=== PATIENT | male | born 1990 | race American Indian/Alaskan Native ===

== ENCOUNTER 2017-06-12 12:01 | Emergency (ER) | payer OTHER ==
[2017-06-12 13:24] VITALS: BP 115/74
[2017-06-12 14:00] LABS: Basophils % (Auto) 0.3 % (0.0-1.8); Eosinophils % (Auto) 0.1 % (0.0-4.3); Hematocrit 48.9 % (35.5-45.6); Hemoglobin 16.2 gm/dl (11.8-15.2); Mean Corpuscular HGB Conc 33 % (32-34); Mean Corpuscular Hemoglobin 28 pg (28-32); Mean Corpuscular Volume 86 fl (84-94); Platelet Count 232 K/mm3 (140-440); Red Cell Distribution Width 13.4 % (13.2-15.2); White Blood Count 8.5 K/mm3 (4.5-11.0)
[2017-06-12 14:01] LABS: Alanine Aminotransferase 28 units/L (7-56); Albumin/Globulin Ratio 1.1 %; Alkaline Phosphatase 58 units/L (35-129); Anion Gap 18 mmol/L; BUN/Creatinine Ratio 14.28; Blood Urea Nitrogen 10 mg/dL (9-20); Calcium 8.6 mg/dL (8.4-10.2); Carbon Dioxide 22 mmol/L (22-30); Chloride 97.6 mmol/L (98-107); Glucose 96 mg/dL (75-100); Lipase 19 units/L (13-60); Potassium 4.1 mmol/L (3.6-5.0); Sodium 133 mmol/L (137-145); Total Protein 7.7 g/dL (6.3-8.2)
[2017-06-12 14:33] LABS: Bilirubin,Urine NEG (Negative); Blood,Urine NEG (Negative); Ketones,Urine 20 mg/dL (Negative); Leukocyte Esterase,Urine NEG (Negative); Mucus,Urine 3+ /HPF; Nitrite,Urine NEG (Negative)
[2017-06-12] MEDS ORDERED: ZOFRAN IV ONE (18:08)
[2017-06-12] MEDS ORDERED: NACL 0.9% 1000 ML 1,000 ML IV ONE (18:08)
[2017-06-12] MEDS ORDERED: ZOFRAN ODT PO ONE (18:34)
== END 2017-06-12 18:54 | disposition home or self-care (01) ==
LOC: ED 12:01
DX: E86.0 Dehydration (principal); E87.1 Hypo-osmolality and hyponatremia; R11.2 Nausea with vomiting, unspecified; R19.7 Diarrhea, unspecified; R80.9 Proteinuria, unspecified; F17.200 Nicotine dependence, unspecified, uncomplicated
CPT/HCPCS: 36415; 80053; 81001; 83690; 85025; 99283; Q0162